=== PATIENT | male | born 1990 | race African-American/Black ===

== ENCOUNTER 2022-10-10 02:57 | Emergency (ER) | payer OTHER ==
[~2022-10-10] VITALS: Ht 182.9 cm; Wt 92.1 kg
[2022-10-10] MEDS ORDERED: AMOX1TAB5 PO (05:18)
[2022-10-10] MEDS ORDERED: INTESTINEX680 M1 PO (05:18)
[2022-10-10] MEDS ORDERED: DICLOFENAC POTA50 MG PO (05:18)
== END 2022-10-10 05:22 | disposition home or self-care (01) ==
LOC: ER 02:57
DX: S01.521A Laceration with foreign body of lip, initial encounter (principal); W50.0XXA Accidental hit or strike by another person, initial encounter; Y93.89 Activity, other specified; Y92.89 Other specified places as the place of occurrence of the external cause; Z88.2 Allergy status to sulfonamides
CPT/HCPCS: 12011; 96372; 99284; J0696; J1885